=== PATIENT | male | born 1970 | race Caucasian/White ===

== ENCOUNTER 2023-12-01 16:18 | Emergency (ER) | payer OTHER, SELFPAY ==
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
[2023-12-01 16:33] VITALS: BP 140/90; PULSE 80; O2SAT 99
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
[2023-12-01 16:41] VITALS: BP 152/79; PULSE 68; RESP 18; TEMP 36.6; O2SAT 98; BMI 23.8
[2023-12-01] MEDS: Acetaminophen 325 MG TABLET 975 MG PO (16:59)
[2023-12-01 18:29] VITALS: BP 148/78; PULSE 74; RESP 19; TEMP 36.8; O2SAT 99
[2023-12-01 18:32] VITALS: BP 148/78; PULSE 74; RESP 19; TEMP 36.8; O2SAT 99
== END 2023-12-01 18:32 | disposition home or self-care (01) ==
PROVIDERS: Emergency Provider Emergency Medicine
DX: S16.1XXA Strain of muscle, fascia and tendon at neck level, initial encounter (principal); S00.81XA Abrasion of other part of head, initial encounter; S66.911A Strain of unspecified muscle, fascia and tendon at wrist and hand level, right hand, initial encounter; S80.12XA Contusion of left lower leg, initial encounter; V43.52XA Car driver injured in collision with other type car in traffic accident, initial encounter; W22.10XA Striking against or struck by unspecified automobile airbag, initial encounter; Y93.9 Activity, unspecified; Y92.410 Unspecified street and highway as the place of occurrence of the external cause; Y99.9 Unspecified external cause status; M54.2 Cervicalgia
CPT/HCPCS: 70450; 72125; 73030; 73100; 99283; 99284

== ENCOUNTER 2023-12-03 17:28 | Emergency (ER) | payer OTHER, SELFPAY ==
[2023-12-03 18:49] VITALS: BP 161/117; PULSE 70; RESP 16; TEMP 36.9; O2SAT 100; BMI 23.4
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
[2023-12-04 00:23] VITALS: BP 119/78; PULSE 57; RESP 14; TEMP 36.7; O2SAT 98
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
[2023-12-04] MEDS: Ketorolac Tromethamine 60 MG/2 ML VIAL IM (00:48)
--- NOTE | 2023-12-04 00:52 | PC.NURSE ---
Pt medicated per [facility] Plan of care ongoing
[2023-12-04 01:02] VITALS: BP 119/78; PULSE 57; RESP 14; TEMP 36.7; O2SAT 98
== END 2023-12-04 01:04 | disposition home or self-care (01) ==
PROVIDERS: Emergency Provider Emergency Medicine
DX: Z04.1 Encounter for examination and observation following transport accident (principal); M79.18 Myalgia, other site
CPT/HCPCS: 96372; 99284; J1885

== ENCOUNTER 2024-04-16 08:14 | Outpatient (AMB) | payer OTHER, SELFPAY ==
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
== END 2024-04-16 08:52 | disposition home or self-care (01) ==
PROVIDERS: Visit Provider Physician Assistant
DX: M25.311 Other instability, right shoulder (principal); M75.21 Bicipital tendinitis, right shoulder
CPT/HCPCS: 99203; G2211

== ENCOUNTER → 2024-04-16 08:14 | Outpatient (BNVA) | payer OTHER, SELFPAY | PROVIDERS: Visit Provider Physician Assistant ==

== ENCOUNTER 2024-04-29 12:44 | Outpatient (REF) | payer OTHER, SELFPAY ==
--- NOTE | ~2024-04-29 | FL_ITS ---
FLUOROSCOPIC RIGHT SHOULDER ARTHROGRAM INDICATIONS: Right shoulder pain. Intra-articular gadolinium injection is needed prior to MRI. PROCEDURE: Risks and benefits and possible complications were discussed with the patient and the consent form was signed. The patient was placed supine on the fluoroscopy table. The right shoulder was prepped and draped in normal sterile fashion. 1% buffered lidocaine was used for anesthesia. A 22-gauge spinal needle was used to access the shoulder joint. Intra-articular position of the needle within the shoulder joint was verified using 3 cc of Omnipaque 300. A total of 10 mL of gadolinium/saline (1:200) contrast mixture was then injected into the shoulder joint. The needle was then removed and a Band-Aid was applied to the injection site. The patient tolerated the procedure well and was sent to MRI. There were no immediate complications. FL/FL Guided Asp Inj Major Jt RT IMPRESSION: Successful fluoroscopic guided intra-articular instillation of dilute gadolinium into the right shoulder joint. Patient will undergo subsequent right shoulder MRI. The procedure was performed by yenifer Ennis PA-C, and directly supervised by Dr. Real. Electronically signed by: Filiberto Real MD 04/29/2024 04:48 PM [facility] [place]
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
[2024-04-29] MEDS: Lidocaine HCl 1 % MPF 30 ML VIAL 5 ML INTRAARTIC (14:08)
[2024-04-29] MEDS: iohexoL 300 MG/ML 50 ML INFUS..BTL INTRAARTIC (14:09)
[2024-04-29] MEDS: gadobutroL 2 ML VIAL IVPUSH (14:10)
== END 2024-04-29 12:45 | disposition home or self-care (01) ==
LOC: HO.XRAY 12:44
PROVIDERS: Visit Provider Physician Assistant
DX: M25.311 Other instability, right shoulder (principal); M75.21 Bicipital tendinitis, right shoulder; S46.811A Strain of other muscles, fascia and tendons at shoulder and upper arm level, right arm, initial encounter
CPT/HCPCS: 20610; 73222; 77002; A9585; J2003; Q9967

== ENCOUNTER → 2024-04-29 12:54 | Outpatient (BNV) | payer OTHER, SELFPAY | PROVIDERS: Visit Provider Physician Assistant Surgical | DX: M25.511 Pain in right shoulder (principal) | CPT/HCPCS: 20610; 77002 ==

== ENCOUNTER 2024-05-22 13:42 | Outpatient (REF) | payer OTHER, SELFPAY ==
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
== END 2024-05-22 13:43 | disposition home or self-care (01) ==
LOC: HO.NEURO 13:42
PROVIDERS: Visit Provider Physician Assistant
DX: R20.2 Paresthesia of skin (principal); R20.0 Anesthesia of skin
CPT/HCPCS: 95886; 95910

== ENCOUNTER → 2024-05-22 13:45 | Outpatient (BNV) | payer OTHER, SELFPAY | PROVIDERS: Visit Provider Physical Medicine & Rehabilitation | DX: G54.0 Brachial plexus disorders (principal) | CPT/HCPCS: 95886; 95910 ==

== ENCOUNTER 2024-06-06 08:50 | Outpatient (AMB) | payer OTHER, SELFPAY ==
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
[2024-06-06 08:57] VITALS: BMI 23.4
== END 2024-06-06 09:15 | disposition home or self-care (01) ==
LOC: HO.HOS 08:51
PROVIDERS: Visit Provider Physician Assistant
DX: M75.21 Bicipital tendinitis, right shoulder (principal)
CPT/HCPCS: 99213; G2211

== ENCOUNTER → 2024-06-06 08:50 | Outpatient (BNVA) | payer OTHER, SELFPAY | PROVIDERS: Visit Provider Physician Assistant ==